=== PATIENT | female | born 1990 | race Caucasian/White ===

== ENCOUNTER 2017-11-15 14:41 | Inpatient (IN) ==
[2017-11-15] MEDS ORDERED: PENICILLIN G POTASSIUM 5 MILLIONUNT in DEXTROSE 5 % IN WATER 100 ML IV ONE ×2 (14:45)
[2017-11-15] MEDS ORDERED: OXYTOCIN/DEXTROSE 5%-WATER 30 UNITS/500 ML BAG IV ONE ×2 (14:45→19:55)
[2017-11-15] MEDS ORDERED: RINGER'S SOLUTION,LACTATED 1,000 ML IV ONE (14:45)
[2017-11-15] MEDS ORDERED: ONDANSETRON HCL/PF 2 MG/ML VIAL IV PRN ×2 (15:09→15:44)
[2017-11-15] MEDS ORDERED: NALOXONE HCL 1 MG/1 ML SYRG IV PRN (15:44)
[2017-11-15] MEDS ORDERED: BUPIVACAINE HCL/0.9 % NACL/PF 250 ML EP PRN (15:44)
[2017-11-15] MEDS ORDERED: fentaNYL CITRATE/PF 50 MCG/ML AMPUL IT SCH (15:45)
[2017-11-15] MEDS ORDERED: DEXTROSE 5%-LACTATED RINGERS 1,000 ML IV PRN (16:33)
--- NOTE | 2017-11-15 16:33 | OR ---
Anesthesia Procedure Note - Anesthesia Procedure Note Narrative: Vital Signs - Last Taken Temp 36.2 C L 11/15/17 16:03 Pulse 79 11/15/17 16:03 Resp 20 11/15/17 16:03 BP 144/77 11/15/17 16:03 Pulse Ox 99 11/15/17 16:03 11/15/17 16:32 ANESTHESIA PROCEDURE NOTE Date of Procedure: 11/15/2017 Time of procedure: 1610. Performed by: Marco Irene CRNA Digital Field Service Technician: None. Preprocedure diagnosis: Active labor. Post procedure diagnosis: Same. Procedure: Insertion of labor epidural. Indications: The patient is a 27 -year-old prima para female in active labor requesting labor epidural for pain management. Findings: See below. Details of the procedure: The patient was placed in a sitting position. Back was prepped with DuraPrep. Patient was then draped in a sterile fashion. Lidocaine 1% was infiltrated to the skin and subcutaneous tissues at the level of the L3 4 interspace. The epidural space was identified using a 18-gauge Tuohy needle with [id number] technique. 20 mcg fentanyl was given intrathecally using a 27 ga. spinal needle. Epidural catheter was inserted without difficulty. Negative test dose was elicited using 5 mL of 1.5% preservative-free lidocaine plus epinephrine 1 200,000. The epidural catheter was then taped and secured in place. EBL: Minimal. Fluids: N/A. Specimen: N/A. Post procedure condition: The patient tolerated the procedure well. No complications were noted. Thank you for this consultation. Soliman CRNA
[2017-11-15] MEDS ORDERED: PENICILLIN G POTASSIUM 2.5 MILLIONUNT in DEXTROSE 5 % IN WATER 100 ML IV SCH ×2 (18:46)
[2017-11-15] MEDS ORDERED: GLYCERIN/WITCH HAZEL LEAF 40 APPL BOX TP PRN (19:55)
[2017-11-15] MEDS ORDERED: oxyCODONE HCL/ACETAMINOPHEN 1 TAB TABLET PO PRN ×2 (19:55)
[2017-11-15] MEDS ORDERED: SENNOSIDES 8.6 MG TABLET PO PRN (19:55)
[2017-11-15] MEDS ORDERED: BISACODYL 10 MG SUPP.RECT RC PRN (19:55)
[2017-11-15] MEDS ORDERED: HYDROCORTISONE 30 APPL TUBE TP PRN (19:55)
[2017-11-15] MEDS ORDERED: BENZOCAINE/MENTHOL 81 SPRAY CAN TP PRN (19:55)
--- NOTE | 2017-11-15 20:00 | OR ---
Operative Report - Dictated Report Narrative: Spontaneous Vaginal Delivery Viable male with APGARS of 9 at 1 minute and 9 at 5 minutes. He delivered at 1937. Presentation was SUSANNAH. No nuchal cord was noted. The anterior shoulder delivered without difficulty with gentle downward traction diet the posterior shoulder and hand. An arm cord was noted. The remainder of the baby was delivered and spontaneous cry was noted and was placed on the maternal abdomen. Patient was dried and stimulated. The cord was clamped and cut after approximately 60 seconds. Weight: 7 pounds 6.9 ounces or 3371 g Placenta was delivered spontaneously and intact. A midline vaginal abrasion was noted and hemostatic without repair. Estimated blood loss: 100 ml Mother and baby tolerated delivery well. History for Definition: * The number of deliveries resulting in a live the patient experienced prior to current hospitalization * The previous delivery of live twins or any live multiple gestation is considered one live event. *If primagravida or nulliparous is documented select zero for the number of previous live births. Live Events: 0
[2017-11-15] MEDS: DOCUSATE SODIUM 100 MG CAPSULE PO SCH (22:52)
[2017-11-15] MEDS: IBUPROFEN 800 MG TABLET PO PRN (23:57)
[2017-11-16] MEDS: DOCUSATE SODIUM 100 MG CAPSULE PO SCH ×2 (10:49→23:59)
[2017-11-16] MEDS: IBUPROFEN 800 MG TABLET PO PRN ×2 (10:49→18:27)
--- NOTE | 2017-11-16 13:39 | PN ---
Subjective - Date and Time Seen Date: 11/16/17 Time: 13:39 Objective - Vitals Vitals: Last Vital Signs Temp 36.5 C 11/16/17 06:56 Pulse 78 11/16/17 06:56 Resp 18 11/16/17 06:56 BP 114/55 11/16/17 06:56 Pulse Ox 96 11/16/17 06:56 Patient denies complaints. Lochia wnl Abdomen - soft, nontender Uterus - firm, at umbilicus - 1 No calf tenderness Impression: day #1 - s/p spontaneous vaginal delivery. Plan: Continue routine care Cauti Physician Documentation - Urinary Catheter Management Urethral (Collins) Date of Insertion: 11/15/17 Time of Insertion: 17:10
[2017-11-17 07:44] VITALS: BP 111/59
--- NOTE | 2017-11-17 10:37 | PN ---
Progess Note - Interim Date: 11/17/17 Time: 10:36 Narrative: 11/17/17 10:36 progress note Subjective: The patient is doing well. She is ambulating, voiding, tolerating by mouth. She has minimal pain and moderate lochia. Objective: General: No acute distress Abdomen: Soft, nontender, fundus is firm just below the umbilicus Extremities: minimal edema, nontender to palpation Assessment and plan: day 2 Feeding: Breast Pain: Controlled with by mouth medication Routine care.
== END 2017-11-17 13:20 | disposition home or self-care (01) | DRG 775 ==
LOC: OB 14:41
PROVIDERS: ADMIT Obstetrics & Gynecology Gynecologic Oncology; ATTEND Obstetrics & Gynecology Gynecologic Oncology
DX: O69.81X0 Labor and delivery complicated by cord around neck, without compression, not applicable or unspecified; D64.9 Anemia, unspecified; O42.02 Full-term premature rupture of membranes, onset of labor within 24 hours of rupture; Z37.0 Single live birth; Z3A.40 40 weeks gestation of pregnancy; O99.02 Anemia complicating childbirth; O99.824 Streptococcus B carrier state complicating childbirth
CPT/HCPCS: 59025; J2405

== ENCOUNTER 2019-03-26 06:03 | Inpatient (IN) ==
[2019-03-26] MEDS ORDERED: OXYTOCIN/DEXTROSE 5%-WATER 30 UNITS/500 ML BAG IV ONE ×2 (06:10→14:18)
[2019-03-26] MEDS ORDERED: RINGER'S SOLUTION,LACTATED 1,000 ML IV ONE (06:10)
[2019-03-26] MEDS ORDERED: ONDANSETRON 4 MG TAB.RAPDIS PO PRN (06:10)
[2019-03-26] MEDS ORDERED: DEXTROSE 5%-LACTATED RINGERS 1,000 ML IV PRN (06:10)
[2019-03-26 07:48] LABS: Cocaine Ur Negative (NEGATIVE); Urine Barbiturate Negative (NEGATIVE); Urine Benzodiazepines Negative (NEGATIVE); Urine Opiates Negative (NEGATIVE); Urine PCP Negative (NEGATIVE); Urine THC Negative (NEGATIVE)
--- NOTE | 2019-03-26 11:22 | ANES ---
Anesthesia Pre Procedure Eval Vitals/Labs: Last Vital Signs Temp 36.5 C 03/26/19 06:30 Pulse 94 03/26/19 06:30 Resp 14 03/26/19 06:30 BP 115/77 03/26/19 06:30 Pulse Ox 97 03/26/19 06:30 HOME MEDICATIONS Vits96/Iron Fum/Folic [ S] 1 tab PO DAILY 11/15/17 [Last Taken 03/26/19] ferrous sulfate 325 mg (65 mg iron) tablet 325 mg PO DAILY #30 tab 12/23/18 [Last Taken 03/26/19] Allergies/Adverse Reactions: Allergies Allergy/AdvReac Type Severity Reaction Status Date / Time No Known Allergies Allergy Verified 03/26/19 06:10 - Planned Procedure Planned Procedure: Induction 39 wks 2days arrythmia Medication List Reviewed:: Yes Allergies Verified: Yes Medical History (Updated 12/23/18 @ 12:04 by Kayla Song RN) Anemia Onset Date: 08/15/17 w/pregnancies. 2018 & 2019 Body piercing Onset Date: Unknown Wears glasses Onset Date: Unknown Surgical History (Updated 08/22/18 @ 10:23 by Kayla Song, RN) History of tonsillectomy Onset Date: ~2013 [place] teeth extracted Onset Date: ~2009 Family History (Updated 08/22/18 @ 10:25 by Kayla Song, RADHA) Mother Hypertension Grandfather Cancer Prostate CAD (coronary artery disease) w/bypass surgeries Grandmother Cancer Breast Grandmother Dementia - Family Anesthesia History Family History:: no untoward family reactions to anesthesia, no familial bleeding tendencies, no family history of clotting disorders, no family history of premature - Airway/Neck/Teeth Within Normal Limits:: Yes Teeth Condition: intact Neck Exam: full range of motion Mallampatti Score: 2 Thyromental (T-M) distance: > 6 cm Mandibulo Hyoid distance: > 3 cm - Respiratory Respiratory Physical: lungs clear Sleep Apnea currently treated: No - Cardiovascular Tolerate Activity: Fair Heart Sounds: S1 & S2, Regular - Anesthesia Assessment and Plan ASA Class: PS, II, E Anesthesia Type Plan: Epidural - CSE for labor analgesia
[2019-03-26] MEDS ORDERED: ONDANSETRON HCL/PF 2 MG/ML VIAL IV PRN (11:23)
[2019-03-26] MEDS ORDERED: BUPIVACAINE HCL/0.9 % NACL/PF 250 ML EP PRN (11:23)
[2019-03-26] MEDS ORDERED: NALOXONE HCL 1 MG/1 ML SYRG IV PRN (11:23)
[2019-03-26] MEDS ORDERED: fentaNYL CITRATE/PF 50 MCG/ML AMPUL IT SCH (11:30)
--- NOTE | 2019-03-26 11:39 | ANES ---
Post Anesthesia Discharge - Discharge from PACU Discharge from PACU when meets criteria: Yes - Comfortable post CSE.
--- NOTE | 2019-03-26 11:41 | ANES ---
Anesthesia Procedure Note Procedure Note: ANESTHESIA PROCEDURE NOTE Date of Procedure: 03/26/2019 Time of procedure: 11:15 AM. Performed by: ARACELI Small CRNA, MSN Cut Off Machine Unloader: Fariba Roman RN. Preprocedure diagnosis: Active labor, labor pain. Post procedure diagnosis: Same. Procedure:Epidural for labor analgesia L3-4. Indications: Labor pain. Findings: See below. Details of the procedure: The patient was placed on the side of the bed in sitting positionand prepped with DuraPrep then draped in a sterile fashion. Lidocaine 1% was infiltrated to the skin and subcutaneous tissues at the level of the L3-4 interspace. An 18-gauge Touhy needle was used to approach the epidural space with loss of resistance technique. Once loss of resistance was achieved a 27-gauge spinal needle was passed through the epidural needle and CSF was contacted. After CSF returned, 20 mcg of fentanyl was injected in the spinal needle was removed the epidural catheter was then threaded approximately 4 cm in the epidural needle was removed. The catheter was taped in place and after careful aspiration 3 mL of 1.5% lidocaine with 1-200,000 epinephrine was injected without change in maternal heart rate or sensorium. . EBL: Minimal. Fluids: N/A. Specimen: N/A. Post procedure condition: The patient tolerated the procedure well with good relief. No complications were noted. Thank you for this consultation. Pete Childs CRNA, ARNP, MSN
--- NOTE | 2019-03-26 12:09 | ANES ---
Post Anesthesia Assessment - Vital Signs Vitals: Last Vital Signs Temp 36.5 C 03/26/19 06:30 Pulse 94 03/26/19 06:30 Resp 14 03/26/19 06:30 BP 115/77 03/26/19 06:30 Pulse Ox 97 03/26/19 06:30 Airway Patency: Normal - Mental Status Level Of Consciousness: Awake, Alert, Appropriate - Pain Level Pain Score: 0 - N/V Assessment Nausea/Vomiting Presence: None Dehydration:: No
--- NOTE | 2019-03-26 12:51 | HP ---
Chief Complaint - Chief Complaint Date of Service: 03/26/19 Time of Service: 12:43 Chief Complaint: induction of labor History of Present Illness: 28 yo at 39 2/7 weeks presents for induction of labor due to arrhythmia. This complicated by anemia and arrhythmia. Rh positive Rubella immune GBS negative Medical History (Updated 12/23/18 @ 12:04 by Kayla Song RN) Anemia Onset Date: 08/15/17 w/pregnancies. 2018 & 2019 Body piercing Onset Date: Unknown Wears glasses Onset Date: Unknown Surgical History: Surgical History (Updated 08/22/18 @ 10:23 by Kayla Song RN) History of tonsillectomy Onset Date: ~2013 [place] teeth extracted Onset Date: ~2009 Family History: Family History (Updated 08/22/18 @ 10:25 by Kayla Song RN) Mother Hypertension Grandfather Cancer Prostate CAD (coronary artery disease) w/bypass surgeries Grandmother Cancer Breast Grandmother Dementia Social History: (Last Reviewed 03/26/19 @ 12:46 by Hay Al DO) Social History: adopted: No fpc: No Marital status: lives independently: Yes household members: spouse, children number of children: 1 current occupational status: employed current occupation: Account Development Specialist current occupational exposures/hazards: No Highest education level completed: Bachelor's degree Sexually Active: Yes Service: No Tobacco: Smoking Status: Never smoker Alcohol: alcohol intake: current alcohol intake frequency: holiday/special occasion details: No alcohol since + UPT Substance Use: substance use type: does not use Dietary Habits: caffeine: Yes caffeine comment: 2/month Exercise: frequency: other Roya/Presybeterian: agree to transfusion: Yes Review Of Systems (GEN) - Review of Systems Generalized/Overall Review: Present: No Symptoms Reported EENTM: Present: No Symptoms Reported Respiratory: Present: No Symptoms Reported Cardiac: Present: No Symptoms Reported Abdominal: Present: No Symptoms Reported Genitourinary: Present: No Symptoms Reported Musculoskeletal: Present: No Symptoms Reported Neurological: Present: No Symptoms Reported Skin: Present: No Symptoms Reported Endocrine: Present: No Symptoms Reported Allergies/Adverse Reactions: Allergies Allergy/AdvReac Type Severity Reaction Status Date / Time No Known Allergies Allergy Verified 03/26/19 06:10 Home Medications: HOME MEDICATIONS Vits96/Iron Fum/Folic [ S] 1 tab PO DAILY 11/15/17 [Last Taken 03/26/19] ferrous sulfate 325 mg (65 mg iron) tablet 325 mg PO DAILY #30 tab 12/23/18 [Last Taken 03/26/19] Exam - Exam Vital Signs: Vital Signs - Last Taken Temp 36.5 C 03/26/19 06:30 Pulse 94 03/26/19 06:30 Resp 14 03/26/19 06:30 BP 115/77 03/26/19 06:30 Pulse Ox 97 03/26/19 06:30 Constitutional: Present: Alert, Oriented x3, Cooperative ENT Exam: Present: hearing grossly normal Neck: Present: non-tender. Absent: thyromegaly Breasts: Present: Exam deferred Respiratory: Present: lungs clear, no respiratory distress Cardiovascular/Chest: Present: regular rate, rhythm, no edema Abdomen: Present: soft, nontender, no rebound tenderness, other - Gravid /Rectal: Present: Other - cervix 3/60/-1 Extremity: Present: no pedal edema, no calf tenderness Skin Exam: Present: normal color, warm/dry, no cyanosis Neurologic: Present: alert, normal mood/affect, oriented x 3 Appearance: Present: appropriate appearance, appropriate insight Eye contact: Present: cooperative, good eye contact Thoughts: Present: normal thought pattern, normal mood /affect Diagnostic Studies: Laboratory Results Negative (NEGATIVE) 03/26/19 07:27 Negative (NEGATIVE) 03/26/19 07:27 Ur Phencyclidine Scrn Negative (NEGATIVE) 03/26/19 07:27 Urine Amphetamine Negative (NEGATIVE) 03/26/19 07:27 U Benzodiazepines Scrn Negative (NEGATIVE) 03/26/19 07:27 Negative (NEGATIVE) 03/26/19 07:27 Negative (NEGATIVE) 03/26/19 07:27 Assessment/Plan - Assessment/Plan (1) Encounter for induction of labor Assessment: Admit for pitocin induction of labor. Epidural PRN. F/u of baby PP per peds. Problem: Acute (2) Foetal arrhythmia Problem: Acute
[2019-03-26] MEDS ORDERED: SENNOSIDES 8.6 MG TABLET PO PRN (14:18)
[2019-03-26] MEDS ORDERED: BENZOCAINE/MENTHOL 81 SPRAY CAN TP PRN (14:18)
[2019-03-26] MEDS ORDERED: BISACODYL 10 MG SUPP.RECT RC PRN (14:18)
[2019-03-26] MEDS ORDERED: oxyCODONE HCL/ACETAMINOPHEN 1 TAB TABLET PO PRN (14:18)
[2019-03-26] MEDS ORDERED: GLYCERIN/WITCH HAZEL LEAF 40 APPL BOX TP PRN (14:18)
[2019-03-26] MEDS ORDERED: IBUPROFEN 800 MG TABLET PO PRN (14:18)
[2019-03-26] MEDS ORDERED: HYDROCORTISONE 30 APPL TUBE TP PRN (14:18)
--- NOTE | 2019-03-26 14:20 | OR ---
Operative Report - Dictated Report Narrative: Spontaneous vaginal delivery of vigorously crying viable female at 1404 on 03/26/2019 with Apgars 9 and 9, weighing 3161 g in SUSANNAH position. Cord clamping delayed approximately 1 minute Placenta delivered complete, intact, with three vessel cord Estimated blood loss: Less than 50 ml Anesthesia: Epidural Lacerations: None History for MU History for MU Definition: * The number of deliveries resulting in a live the patient experienced prior to current hospitalization * The previous delivery of live twins or any live multiple gestation is considered one live event. *If primagravida or nulliparous is documented select zero for the number of previous live births. Live Events: Live Events: 1
[2019-03-26] MEDS: DOCUSATE SODIUM 100 MG CAPSULE PO SCH (20:09)
[2019-03-27] MEDS: IBUPROFEN 800 MG TABLET PO PRN ×3 (02:11→22:09)
[2019-03-27] MEDS ORDERED: FLU VACC QS2019-20(6MOS UP)/PF 60 MCG/0.5 ML SYRINGE IM ONE ×2 (09:00→09:13)
[2019-03-27] MEDS: PRENATAL VITS96/IRON FUM/FOLIC 1 TAB TABLET PO SCH (09:26)
[2019-03-27] MEDS: FERROUS SULFATE 325 MG TABLET PO SCH (09:26)
[2019-03-27] MEDS: DOCUSATE SODIUM 100 MG CAPSULE PO SCH ×2 (09:26→21:24)
--- NOTE | 2019-03-27 16:34 | PN ---
Subjective - Date and Time Seen Date: 03/27/19 Time: 16:33 - Seen this a.m. Objective - Vitals Vitals: Last Vital Signs Temp 36.7 C 03/27/19 14:00 Pulse 81 03/27/19 14:00 Resp 14 03/27/19 14:00 BP 103/62 03/27/19 14:00 Pulse Ox 97 03/27/19 14:00 Patient denies complaints. Lochia wnl abdomen - soft, nontender Uterus -firm, at umbilicus - 1 no calf tenderness Impression: day #1 - s/p spontaneous vaginal delivery. Plan: Continue routine care Cauti Physician Documentation - Urinary Catheter Management Urethral (Collins) Date of Insertion: 03/26/19 Time of Insertion: 12:00 Date of Removal: 03/26/19 Time of Removal: 13:57 Assessment/Plan - Problems/Diagnosis (1) Encounter for induction of labor Problem: Acute (2) Foetal arrhythmia Problem: Acute
[2019-03-28 08:42] VITALS: BP 115/69
[2019-03-28] MEDS: DOCUSATE SODIUM 100 MG CAPSULE PO SCH (09:29)
[2019-03-28] MEDS: FERROUS SULFATE 325 MG TABLET PO SCH (09:29)
[2019-03-28] MEDS: PRENATAL VITS96/IRON FUM/FOLIC 1 TAB TABLET PO SCH (09:29)
--- NOTE | 2019-03-28 09:44 | PN ---
Subjective - Date and Time Seen Date: 03/28/19 Time: 09:43 Objective - Vitals Vitals: Last Vital Signs Temp 36.7 C 03/28/19 08:35 Pulse 92 03/28/19 08:35 Resp 16 03/28/19 03:13 BP 115/69 03/28/19 08:35 Pulse Ox 98 03/28/19 08:35 Patient denies complaints. Lochia wnl abdomen - soft, nontender Uterus -firm, at umbilicus - 2 no calf tenderness Impression: day #2 - s/p spontaneous vaginal delivery. Plan: Routine discharge instructions Cauti Physician Documentation - Urinary Catheter Management Urethral (Collins) Date of Insertion: 03/26/19 Time of Insertion: 12:00 Date of Removal: 03/26/19 Time of Removal: 13:57 Assessment/Plan - Problems/Diagnosis (1) Encounter for induction of labor Problem: Acute (2) Foetal arrhythmia Problem: Acute
== END 2019-03-28 12:35 | disposition home or self-care (01) | DRG 807 ==
LOC: OB 06:03 → MS 22:37
PROVIDERS: ADMIT Obstetrics & Gynecology; ATTEND Obstetrics & Gynecology
CPT/HCPCS: 59025; 80307; 90686